=== PATIENT | female | born 1950 | race Caucasian/White ===

== ENCOUNTER 2017-11-17 10:16 | Emergency (ER) | payer MEDICARE ==
[~2017-11-17] VITALS: Ht 157.5 cm; Wt 102.1 kg
[~2017-11-17 10:16] MED LIST: ASPIRIN EC81 MG PO; D3 PO; FISH OIL PO; LEVOTHROXINE PO; SERTRALINE PO; TYSABRI300 MG/15 IV; VESICARE10 MG PO; [UNRECOGNIZED DRUG - CODE] PO
[2017-11-17] MEDS ORDERED: HYDROCODONE/APAP 5MG-325MG TAB PO ONE (10:45)
--- NOTE | 2017-11-17 12:13 | Diagnostic Imaging Report ---
PROCEDURE:X-RAY RIGHT SHOULDER, COMPLETE COMPARISON:[facility], DX, CHEST 2 VIEWS, 03/22/2017, 9:52. INDICATIONS:FALL FINDINGS: Mild osteopenia. No acute, displaced fracture or dislocation. No lytic or blastic lesions. Stable metallic anchor screw in the right humeral head. Stable widening of the a.c. joint. Glenohumeral joint is grossly unremarkable. Soft tissues are unremarkable. CONCLUSION: No acute abnormalities. Xavier Gardiner M.D. Dictated by: Xavier Gardiner M.D. on 11/17/2017 at 12:22 Electronically approved by: Xavier Gardiner M.D. on 11/17/2017 at 12:22
--- NOTE | 2017-11-17 12:14 | Diagnostic Imaging Report ---
PROCEDURE:X-RAY RIGHT ANKLE, COMPLETE INDICATION:Status post fall COMPARISON:None. FINDINGS: Mild osteopenia. No acute displaced fracture or dislocation. No lytic or blastic lesion. No osteochondral lesion. Ankle mortise is preserved. Mild soft tissue swelling surrounding the ankle. CONCLUSION: No acute abnormalities. Xavier Gardiner M.D. Dictated by: Xavier Gardiner M.D. on 11/17/2017 at 12:23 Electronically approved by: Xavier Gardiner M.D. on 11/17/2017 at 12:23
--- NOTE | 2017-11-17 12:22 | Diagnostic Imaging Report ---
PROCEDURE:X-RAY RIGHT FOOT, COMPLETE COMPARISON:None. INDICATIONS:FALL FINDINGS: Mild osteopenia. Curvilinear lucency involving the proximal aspect of the base of the fifth metatarsal bone, with intra-articular extension, consistent with avulsion fracture. 1.0 cm well-corticated bony fragment at projecting lateral to the cuboid bone consistent with an os peroneum. Other bony structures are intact, with acute, displaced fracture or dislocation. Mild soft tissue swelling in the dorsal aspect of the foot. CONCLUSION: 1. Acute nondisplaced avulsion fracture of the base of the fifth metatarsal bone with intra-articular extension. Xavier Gardiner M.D. Dictated by: Xavier Gardiner M.D. on 11/17/2017 at 12:31 Electronically approved by: Xavier Gardiner M.D. on 11/17/2017 at 12:31
--- NOTE | 2017-11-17 12:24 | Diagnostic Imaging Report ---
PROCEDURE:KNEE THREE VIEWS BILATERAL COMPARISON:None. INDICATIONS:FALL FINDINGS: Mild osteopenia. No acute, displaced fracture or dislocation. No lytic or blastic lesion. Mild tricompartmental degenerative joint disease, with presence of small osteophytes. No suprapatellar effusion. CONCLUSION: No acute abnormalities. Xavier Gardiner M.D. Dictated by: Xavier Gardiner M.D. on 11/17/2017 at 12:33 Electronically approved by: Xavier Gardiner M.D. on 11/17/2017 at 12:33
[2017-11-17] MEDS ORDERED: HYDROCODONE/APAP 5MG-325MG TAB ONE (14:33)
[2017-11-17 14:41] VITALS: BP 183/86
== END 2017-11-17 14:52 | disposition home or self-care (01) ==
LOC: ER 10:16
DX: S40.011A Contusion of right shoulder, initial encounter (principal); S80.02XA Contusion of left knee, initial encounter; S80.01XA Contusion of right knee, initial encounter; S93.431A Sprain of tibiofibular ligament of right ankle, initial encounter; S92.014A Nondisplaced fracture of body of right calcaneus, initial encounter for closed fracture; W01.0XXA Fall on same level from slipping, tripping and stumbling without subsequent striking against object, initial encounter; Y92.89 Other specified places as the place of occurrence of the external cause; E07.9 Disorder of thyroid, unspecified; G35 Multiple sclerosis; F32.9 Major depressive disorder, single episode, unspecified; M54.9 Dorsalgia, unspecified; G89.29 Other chronic pain
CPT/HCPCS: 99283

== ENCOUNTER → 2017-11-25 | Day surgery (SDC) | payer MEDICARE ==
[2017-11-24 12:41] LABS: BASOPHILS % 0.5 % (0.0-1.0); EOSINOPHILS # (AUTO) 0.1 (0.0-0.4); EOSINOPHILS % 0.8 % (0.0-6.0); HEMATOCRIT 38.5 % (34.2-44.1); HEMOGLOBIN 12.8 g/dL (12.0-16.0); MEAN CORPUSCULAR HEMOGLOBIN 31.1 pg (28-32); MEAN CORPUSCULAR HGB CONC 33.2 g/dL (31-35); MEAN CORPUSCULAR VOLUME 93.4 fL (81-99); MONOCYTES # (AUTO) 0.4 (0.2-0.8); MONOCYTES % 6.1 % (4.4-11.3); NEUTROPHILS % 61.4 % (38.7-80.0); PLATELET COUNT 282 x10e3/uL (140-360); RED BLOOD COUNT 4.12 x10e6/uL (3.6-5.1); RED CELL DISTRIBUTION WIDTH 14.2 % (11.7-14.4)
[2017-11-24 12:57] LABS: BLOOD UREA NITROGEN 9 mg/dL (7-26); BUN/CREATININE RATIO 12 (6-25); CALCIUM 9.3 mg/dL (8.4-10.2); CARBON DIOXIDE 26 mmol/L (22-29); CHLORIDE 107 mmol/L (98-107); CREATININE, SERUM 0.74 mg/dL (0.57-1.11); EST GLOMERULAR FILTRATION RATE > 60 ML/MIN (60-); GLUCOSE 100 mg/dL (74-118); SODIUM 141 mmol/L (136-145)
[~2017-11-25] MED LIST changes: +ACETAMINOPHEN 1000 MG/100 ML 100 ML IV ONE; +BUPIVACAINE HCL 0.5% 10ML MPF VIAL INJ ONE; +CEFAZOLIN SOD 2 GM/D5W 50ML 50 ML IV ONE; +DEXAMETHASONE SOD PHOS INJ 4 MG/ML VIAL ONE; +EPHEDRINE SULFATE INJ 50 MG/10 ML SYR ONE; +FENTANYL CITRATE/PF 100MCG/2 ML INJ ONE; +KETOROLAC TROMETHAMINE 30 MG/ML VIAL ONE; +LIDOCAINE HCL 2% LOCAL INJ 5 ML SDV VIAL INJ ONE; +MIDAZOLAM HCL 2 MG/2 ML VIAL ONE; +NEOSTIGMINE 1 MG/ML 10ML VIAL ONE; +ONDANSETRON HCL INJ 2 MG/ML VIAL ONE; +PROPOFOL IV EMULSION 10 MG/ML 20 ML VIAL ONE; +SEVOFLURANE INHAL SOLN 250 ML PEN BTL ONE
--- NOTE | 2017-11-25 12:46 | Operative Report ---
DATE OF PROCEDURE: November 25, 2017 PREOPERATIVE DIAGNOSIS: Bella fracture, 5th metatarsal base, right foot. POSTOPERATIVE DIAGNOSIS: Bella fracture, 5th metatarsal base, right foot. PROCEDURES 1. Open reduction with internal fixation, Bella fracture, 5th metatarsal base, right foot. 2. Human tissue allograft. ANESTHESIA: General endotracheal. HEMOSTASIS: A right thigh tourniquet at 250 mmHg to create hemostasis. PROCEDURE IN DETAIL: The patient was taken to the operating room in a mildly sedated state and placed upon the operating table in the supine position. Following induction of general anesthetic, the right lower extremity was elevated to 60 degrees to exsanguinate before inflating the pneumatic thigh tourniquet to 350 mmHg to create hemostasis. The right lower extremity was placed upon the operating table prior to performing the following procedures: Procedure #1: Open reduction with internal fixation, 5th metatarsal, right foot. The patient was evaluated under fluoroscopy, and the exact area of the unstable 5th metatarsal base fracture was identified. A linear longitudinal incision was made along the lateral aspect of the 5th metatarsal base. The incision was approximately 5 cm in length and allowed for identification of the individual fracture line. Reduction forceps were applied; and under fluoroscopy, the unstable 5th metatarsal base fracture was reduced. A 10-mm compressive bone staple was then inserted utilizing the standard drill technique. This insertion and tamp allowed for reduction with compression of the unstable 5th metatarsal base Bella fracture. This having been accomplished, the area was irrigated with copious amounts of sterile saline solution. Human tissue allograft was applied to the area of the wound, and deep closure was 3-0 Vicryl, subcutaneous closure 4-0 Vicryl, and skin closure 4-0 nylon. The areas of surgery were then blocked with 0.5 Marcaine and Decadron [place]. Release of the pneumatic thigh tourniquet showed a normal hyperemic flush to all digits of the right foot. The patient left the operating room with vital signs stable and in apparent satisfactory condition, having tolerated both anesthetic and procedure very well. Job#: [id number]
== END | disposition home or self-care (01) ==
LOC: OR 05:55
PROVIDERS: ATTEND Podiatrist Foot Surgery
DX: S92.351A Displaced fracture of fifth metatarsal bone, right foot, initial encounter for closed fracture (principal); G35 Multiple sclerosis; I10 Essential (primary) hypertension; F32.9 Major depressive disorder, single episode, unspecified; F41.9 Anxiety disorder, unspecified; X58.XXXA Exposure to other specified factors, initial encounter; Z01.810 Encounter for preprocedural cardiovascular examination; Z01.812 Encounter for preprocedural laboratory examination; Z79.82 Long term (current) use of aspirin
CPT/HCPCS: 28485; 36415; 76000; 80048; 85025; 93005; J1100; J1885; J2001; J2250; J2405; J2710

== ENCOUNTER → 2019-01-01 | Outpatient (CLI) | payer MEDICARE ==
[~2019-01-01] MED LIST changes: -ACETAMINOPHEN 1000 MG/100 ML 100 ML IV ONE; -BUPIVACAINE HCL 0.5% 10ML MPF VIAL INJ ONE; -CEFAZOLIN SOD 2 GM/D5W 50ML 50 ML IV ONE; -DEXAMETHASONE SOD PHOS INJ 4 MG/ML VIAL ONE; -EPHEDRINE SULFATE INJ 50 MG/10 ML SYR ONE; -FENTANYL CITRATE/PF 100MCG/2 ML INJ ONE; -KETOROLAC TROMETHAMINE 30 MG/ML VIAL ONE; -LIDOCAINE HCL 2% LOCAL INJ 5 ML SDV VIAL INJ ONE; +LORAZEPAM INJ 2 MG/ML VIAL ONE; -MIDAZOLAM HCL 2 MG/2 ML VIAL ONE; -NEOSTIGMINE 1 MG/ML 10ML VIAL ONE; -ONDANSETRON HCL INJ 2 MG/ML VIAL ONE; -PROPOFOL IV EMULSION 10 MG/ML 20 ML VIAL ONE; -SEVOFLURANE INHAL SOLN 250 ML PEN BTL ONE
--- NOTE | 2019-01-01 10:23 | Diagnostic Imaging Report ---
Examination: MRI BRAIN WITHOUT CONTRAST History: Multiple sclerosis. Comparison studies: The images of a prior brain MRI dated 02/04/2017, but the report is available for review. Technique: Sagittal T2; axial DWI, FLAIR, GRE or SWI, T1, Coronal FLAIR. Intravenous contrast: None TECHNIQUE: Sagittal FLAIR with axial and coronal reconstructions; axial precontrast T1, postcontrast T2, FLAIR; axial, sagittal and coronal postcontrast T1. Contrast:None. FINDINGS: T2 lesions: Number: Approximately 10-15 discrete T2 lesions. Presumably no change from prior based on prior report. Size: Range in size from 2 mm to 8 mm. Location: Periventricular, deep, and subcortical white matter. No brainstem or cerebellar lesion. T1 "black holes": There are no lesions of cerebrospinal fluid equivalent intensity. Enhancing lesions: Not applicable as contrast was not provided. Corpus callosum volume: Normal for age, unchanged based on prior report. Brain volume: Within normal limits, unchanged based on prior report. Additional finding: No additional intracranial abnormality. IMPRESSION: Based on prior report, there are unchanged lesion in the periventricular white matter which could be seen in the clinical diagnosis of multiple sclerosis. Signed by: Dr. Shelbi Durand M.D. on 01/01/2019 10:20 AM
--- NOTE | 2019-01-01 10:28 | Diagnostic Imaging Report ---
Examination: MRI SPINE CERVICAL WITHOUT CONTRAST HISTORY: Multiple sclerosis. COMPARISON: The images of the prior exam performed February 04, 2017 are in accessible at this time. However, the report was available for review. TECHNIQUE: Sagittal and axial T1 postcontrast; sagittal T2 and STIR. Axial T2. Intravenous contrast: None. FINDINGS: Spinal cord size: Normal, and presumably unchanged based on prior report. Enhancing lesions: Not applicable as contrast was not provided. T2 lesions: Right posterior cord at C2, unchanged from prior report. Right lateral cord at C4-C5, unchanged from prior report. Right lateral and posterior cord at C5, unchanged from prior report. Left posterolateral cord at C5-C6, unchanged from prior report. T1 lesions: There are no lesions of cerebrospinal fluid equivalent intensity. Vertebrae: Normal alignment, height, and signal intensity. Discs: Diffuse disc bulges from C3 through C7 with [id number] canal stenosis at C6-C7. Unchanged moderate left foraminal narrowing at C3-C4 due to uncovertebral and facet arthropathy. Foramen magnum: No Chiari malformation, mass, or basilar invagination. Additional findings:None. IMPRESSION: Based on prior report performed February 04, 2017, there is unchanged lesions within the cervical spinal cord, consistent with multiple sclerosis. Signed by: Dr. Shelbi Durand M.D. on 01/01/2019 10:24 AM
== END ==
LOC: MRI 06:59
PROVIDERS: ATTEND Psychiatry & Neurology Neurology
DX: G35 Multiple sclerosis (principal)
CPT/HCPCS: 70551; 72141; J2060

== ENCOUNTER → 2019-04-27 | Outpatient (CLI) | payer MEDICARE ==
--- NOTE | 2019-04-27 16:41 | Diagnostic Imaging Report ---
Examination: MRI SPINE LUMBAR AND WITHOUT CONTRAST History: Left-sided low back pain radiating left lower extremity. Left lumbar radiculopathy Comparison studies: None Technique: Sagittal, coronal and axial T2 , sagittal T1 and STIR; axial spin density oblique. Findings: Number of lumbar vertebral bodies: Five. Alignment: Normal lordosis. No scoliosis. Soft tissues: T2 hyperintense lesion is demonstrated in the interpolar left kidney, likely representing a cyst (2.3 cm). Posterior paraspinal soft tissues and muscles: Mild fatty atrophy. Lower thoracic cord: Normal in signal and morphology. The tip of the conus is at L1. Cauda equina: No masses. No arachnoiditis. Vertebrae: No fractures, infection or neoplasm. Degenerative changes: L1-L2: Spinal right central disc protrusion with associated annular fissure. No foraminal or canal stenosis. L2-L3: Mild bilateral facet arthropathy. Mild diffuse bulge. No foraminal or canal stenosis. L3-L4: Moderate bilateral facet arthropathy. Mild diffuse disc bulge. No foraminal or canal stenosis. L4-L5: Mild diffuse disc bulge and moderate bilateral facet arthropathy. No foraminal or canal stenosis. L5-S1: Asymmetric to the left disc bulge and severe bilateral facet arthropathy result in moderate left neural foraminal narrowing. No right foraminal or canal stenosis. IMPRESSION: 1. Degenerative changes from L1-L2 through L5-S1 with moderate left foraminal narrowing at L5-S1. 2. No canal stenosis. 3. No signal change within the conus. Signed by: Dr. Shelbi Durand M.D. on 04/27/2019 4:37 PM
--- NOTE | 2019-04-27 16:47 | Diagnostic Imaging Report ---
Examination: MRI SPINE CERVICAL WITHOUT CONTRAST HISTORY: Multiple sclerosis. COMPARISON: Cervical spine MRI performed January 01, 2019 TECHNIQUE: Sagittal and axial T1; sagittal T2 and STIR. Axial T2. Intravenous contrast: None FINDINGS: Spinal cord size: Normal, unchanged. Enhancing lesions: Cannot be evaluated due to lack of intravenous contrast. T2 lesions: At C2, right posterior cord, unchanged. At C3, left lateral cord, unchanged. At C4-5, right lateral cord, unchanged. At C5, right posterior cord, unchanged. At C5-6, left posterolateral cord, unchanged. T1 lesions: There are no lesions of cerebrospinal fluid equivalent intensity. Vertebrae: Normal alignment, height, and signal intensity. Discs: Unchanged moderate left foraminal narrowing at C3-C4. Unchanged mild canal stenosis at C6-C7 due to diffuse disc osteophyte complex. Foramen magnum: No Chiari malformation, mass, or basilar invagination. Additional findings:None. IMPRESSION: 1. No new lesion when compared to prior cervical spine MRI performed January 01, 2019. 2. Unchanged lesions related to multiple sclerosis. Signed by: Dr. Shelbi Durand M.D. on 04/27/2019 4:44 PM
== END ==
LOC: MRI 12:32
PROVIDERS: ATTEND Psychiatry & Neurology Neurology
DX: G35 Multiple sclerosis (principal)
CPT/HCPCS: 72141; 72148; J2060